=== PATIENT | female | born 1985 | race Caucasian/White ===

== ENCOUNTER 2017-01-11 17:49 | Emergency (ER) | payer OTHER ==
--- NOTE | 2017-01-11 20:07 | ED ---
Allergic Reaction/Systemic - HPI Summary HPI Summary: 31 female presents to ED from [facility] with complaints of allergic reaction consisting of urticaria and some tightness in chest. Given benadryl and prednisone at urgent care. States symptoms have since improved and she is asymptomatic currently. Stated she obtained her weekly allergy shot and appeared that she had an allergic reaction to it. Denies any new medications, foods, lotions, soaps and perfumes. No other complaints. No PMHx. States she had reaction around 4pm, about 15 minutes after allergy shot. Has been having allergy shots weekly since August without previous reaction. - History of Current Complaint Chief Complaint: EDAllergicReaction Time Seen by Provider: 01/11/17 18:40 Hx Obtained From: Patient Onset/Duration: Sudden Onset, Resolved Timing: Lasting Hours - 1 Severity Initially: Mild Severity Currently: None Pain Intensity: 0 Pain Scale Used: 0-10 Numeric Location: Diffuse - urticaria over chest, abdomen, neck Character: Pruritus, Hives Aggravating Factor(s): Nothing - allergy shot, cause? Alleviating Factor(s): Antihistamines - benadryl and prednisone Associated Signs And Symptoms: Positive: Other: - chest tightness. Negative: Throat Tightening - Related Hx Possible Reaction To: Other: - allergy shot PMH/Surg Hx/FS Hx/Imm Hx Endocrine/Hematology History: Denies: Hx Diabetes Cardiovascular History: Denies: Hx Hypertension - Immunization History Date of Influenza Vaccine: 10/2016 Immunizations Up to Date: Yes Infectious Disease History: No Infectious Disease History: Denies: Traveled Outside the [place] in Last 30 Days - Family History Known Family History: Positive: None - Social History Alcohol Use: None Substance Use Type: Reports: None Smoking Status (MU): Never Smoked Tobacco Review of Systems Constitutional: Negative Positive: Other - chest tightness Respiratory: Negative Positive: Rash - urticaria All Other Systems Reviewed And Are Negative: Yes Physical Exam Triage Information Reviewed: Yes Vital Signs On Initial Exam: Initial Vitals Temp Pulse Resp BP Pulse Ox 99.1 F 84 18 132/86 100 01/11/17 18:03 01/11/17 18:03 01/11/17 18:03 01/11/17 18:03 01/11/17 18:03 Vital Signs Reviewed: Yes Appearance: Positive: Well-Appearing, No Pain Distress, Well-Nourished Skin: Positive: Warm, Skin Color Reflects Adequate Perfusion, Dry, Other - no rash upon exam, urticaria resolved. Negative: Cold, Numb, Cyanosis @, Pale, Erythema @ Head/Face: Positive: Normal Head/Face Inspection Eyes: Positive: Conjunctiva Clear ENT: Positive: Hearing grossly normal, Pharynx normal Neck: Positive: Supple Respiratory/Lung Sounds: Positive: Clear to Auscultation, Breath Sounds Present. Negative: Rales, Rhonchi, Wheezes Cardiovascular: Positive: Normal, RRR, Pulses are Symmetrical in both Upper and Lower Extremities. Negative: Murmur, Rub Bowel Sounds: Positive: Present Musculoskeletal: Positive: Normal, Strength/ROM Intact Neurological: Positive: Normal, Sensory/Motor Intact, Alert, Oriented to Person Place, Time - [place] Coma Scale Coma Scale Total: 15 Diagnostics - Vital Signs Vital Signs Temp Pulse Resp BP Pulse Ox 01/11/17 19:24 72 16 109/56 99 01/11/17 18:03 99.1 F 84 18 132/86 100 - Laboratory Lab Statement: Any lab studies that have been ordered have been reviewed, and results considered in the medical decision making process. Allergic Reaction Course/Dx - Course Course Of Treatment: patient was given benadryl and prednisone while at . reaction occurred around 4pm. patient was observed in ED for 2 hours without any symptoms and complete improvement. asymptomatic. will continue prednisone and benadryl. appears to have been allergy shot. follow up with special needs tutor, possibly refrain from shots. aware of worsening signs and symptoms to return for. agrees and understands. follow up pcp. - Diagnoses Differential Diagnosis/HQI/PQRI: Positive: Anaphylaxis, Local Allergic Reaction , Urticaria Provider Diagnoses: Allergic reaction, Urticaria Discharge - Discharge Plan Condition: Stable Disposition: HOME Prescriptions: Methylprednisolone [Medrol Dosepak 4 MG*] 4 mg PO .SEE GRIS INSTRUCTION #21 tab Patient Education Materials: Urticaria (ED), General Allergic Reaction (ED) Referrals: [facility] [Primary Care Provider] - Additional Instructions: Take prescribed medication. Recommend taking in morning. Take benadryl at bedtime, one more tonight before bed as well. You may take more benadryl throughout day, as needed, as directed. Drink plenty of fluids, Any new or worsening symptoms please seek medical attention promptly. Follow up with PCP and special needs tutor.
[2017-01-11 20:14] VITALS: BP 116/67
== END 2017-01-11 20:14 | disposition home or self-care (01) ==
LOC: ED 17:49
DX: T78.40XA Allergy, unspecified, initial encounter (principal); X58.XXXA Exposure to other specified factors, initial encounter; L50.0 Allergic urticaria; R07.9 Chest pain, unspecified
CPT/HCPCS: 99282

== ENCOUNTER 2018-03-12 03:35 | Emergency (ER) | payer OTHER ==
[2018-03-12] MEDS ORDERED: Pantoprazole IV* 40 MG IV ONE (04:35)
[2018-03-12] MEDS ORDERED: Metoclopramide IV* 5 MG/ML 2 ML VIAL IV SLOW PU ONE (04:35)
[2018-03-12] MEDS ORDERED: NS 0.9% 1000 ML* 1,000 ML IV ONE (04:35)
[2018-03-12 04:51] LABS: Hematocrit 41 % (35-47); Hemoglobin 13.9 g/dl (12.0-16.0); Mean Corpuscular HGB Conc 34 g/dl (31-36); Mean Corpuscular Hemoglobin 30 pg (27-31); Mean Corpuscular Volume 89 fL (80-97); Mean Platelet Volume 7.6 fL (7.4-10.4); Platelet Count 201 10^3/ul (150-450); Red Blood Count 4.64 10^6/ul (4.00-5.40); Red Cell Distribution Width 14 % (10.5-15); White Blood Count 7.5 10^3/ul (3.5-10.8)
[2018-03-12] MEDS ORDERED: Metoclopramide IV* 5 MG/ML 2 ML VIAL ONE (04:53)
[2018-03-12 05:08] LABS: ALT 10 U/L (7-52); AST 13 U/L (13-39); Albumin 3.7 g/dL (3.2-5.2); Albumin/Globulin Ratio 1.2 (1-3); Alkaline Phosphatase 41 U/L (34-104); Amylase 69 U/L (29-103); Anion Gap 6 mmol/L (2-11); BUN/Creatinine Ratio 26.8 (8-20); Blood Urea Nitrogen 15 mg/dL (6-24); C Reactive Protein 1.47 mg/L (<8.01); CO2 Carbon Dioxide 25 mmol/L (22-32); Calcium 8.8 mg/dL (8.6-10.3); Chloride 106 mmol/L (101-111); EGFR Non-African American 124.7 (>60); Globulin 3.2 g/dL (2-4); Glucose 106 mg/dL (70-100); Magnesium 1.9 mg/dL (1.9-2.7); Potassium 3.4 mmol/L (3.5-5.0); Sodium 137 mmol/L (135-145); Total Protein 6.9 g/dL (6.4-8.9)
[2018-03-12] MEDS ORDERED: Potassium Chlor TAB* 20 MEQ TAB.ER PO ONE (05:10)
[2018-03-12 05:15] LABS: HCG Pregnancy < 0.60 mIU/mL
[2018-03-12 05:19] LABS: ABS Basophils 0 10^3/ul (0-0.2); ABS Eosinophils 0.1 10^3/ul (0-0.6); ABS Lymphocytes 0.3 10^3/ul (1.0-4.8); ABS Monocytes 0.6 10^3/ul (0-0.8); ABS Neutrophils 6.5 10^3/ul (1.5-7.7); ABS Nucleated RBC 0 10^3/ul; Eosinophil % 0.9 %; Lymphocyte % 3.7 %; Nucleated Red Blood Cells % 0
[2018-03-12 05:23] LABS: Urine Appearance Cloudy; Urine Bacteria 1+ (Absent); Urine Bilirubin Negative (Negative); Urine Blood 1+ (Negative); Urine Color Amber; Urine Glucose Negative (Negative); Urine Ketones 2+ (Negative); Urine Nitrite Negative (Negative); Urine Protein 1+(30 mg/dL) (Negative); Urine Red Blood Cell 2+(6-10/hpf) (Absent); Urine Specific Gravity 1.025 (1.010-1.030); Urine Urobilinogen Negative (Negative); Urine White Blood Cell 2+(11-20/hpf) (Absent)
[2018-03-12 06:10] VITALS: BP 112/79
--- NOTE | 2018-03-12 12:47 | ED ---
Abdominal Pain/Female - HPI Summary HPI Summary: A 32 y/o female presents to the ED c/o vomiting. Additionally c/o epigastric abdominal pain. In the ED course, the patient has a pulse of 93 BPM, O2 saturation of 97%, and blood pressure of 110/75. As per triage, "pt states that she has vomitied multipal times in the last few hours and the last time she vomited there was some blood in the vomite". According to the patient, she has been vomiting since 1230 to 0100 this morning. She denies any diarrhea, but noted that her vomiting came first before epigastic pain which started upon arrival to [facility]. SHe denies any history of abdominal pains. Patient has a PMHx of cancer and thyroid issues. Patient denies any ETOH. - History of Current Complaint Chief Complaint: EDNauseaVomitDiarrh Stated Complaint: VOMITTING Time Seen by Provider: 03/12/18 03:41 Hx Obtained From: Patient Onset/Duration: Sudden Onset, Still Present Severity Currently: None Pain Intensity: 0 Pain Scale Used: 0-10 Numeric Location: Epigastric Radiates: No Aggravating Factor(s): Nothing Alleviating Factor(s): Nothing Associated Signs and Symptoms: Positive: Vomiting. Negative: Diarrhea Allergies/Adverse Reactions: Allergies Allergy/AdvReac Type Severity Reaction Status Date / Time No Known Allergies Allergy Verified 03/12/18 04:11 Home Medications: Home Medications Levothyroxine TAB* [Synthroid TAB*] 125 mcg PO DAILY 03/12/18 [History Confirmed 03/12/18] Norgestrel-Ethinyl Estradiol [Cryselle-28 Tablet] 1 tab PO DAILY 03/12/18 [ History Confirmed 03/12/18] PMH/Surg Hx/FS Hx/Imm Hx Endocrine/Hematology History: Denies: Hx Diabetes Cardiovascular History: Denies: Hx Hypertension - Surgical History Surgery Procedure, Year, and Place: none - Immunization History Date of Influenza Vaccine: 10/2016 Immunizations Up to Date: Yes Infectious Disease History: No Infectious Disease History: Denies: Traveled Outside the [place] in Last 30 Days - Family History Known Family History: Negative: Renal Disease - Social History Alcohol Use: None Substance Use Type: Reports: None Smoking Status (MU): Never Smoked Tobacco Review of Systems Negative: Fever Positive: Abdominal Pain, Vomiting. Negative: Diarrhea All Other Systems Reviewed And Are Negative: Yes Physical Exam - Summary Physical Exam Summary: VITAL SIGNS: Reviewed. GENERAL: Patient is a well-developed and nourished male who is lying comfortable in the stretcher. Patient is not in any acute respiratory distress. HEAD AND FACE: No signs of trauma. No ecchymosis, hematomas or skull depressions. No sinus tenderness. EYES: PERRLA, EOMI x 2, No injected conjunctiva, no nystagmus. EARS: Hearing grossly intact. Ear canals and tympanic membranes are within normal limits. MOUTH: Oropharynx within normal limits. NECK: Supple, trachea is midline, no adenopathy, no JVD, no carotid bruit, no c- spine tenderness, neck with full ROM. CHEST: Symmetric, no tenderness at palpation LUNGS: Clear to auscultation bilaterally. No wheezing or crackles. CVS: Regular rate and rhythm, S1 and S2 present, no murmurs or gallops appreciated. ABDOMEN: Soft, epigastric tenderness. No signs of distention. No rebound no guarding, and no masses palpated. Bowel sounds are normal. EXTREMITIES: FROM in all major joints, no edema, no cyanosis or clubbing. NEURO: Alert and oriented x 3. No acute neurological deficits. Speech is normal and follows commands. SKIN: Dry and warm Triage Information Reviewed: Yes Vital Signs On Initial Exam: Initial Vitals Temp Pulse Resp BP Pulse Ox 98.0 F 89 20 128/76 99 03/12/18 03:40 03/12/18 03:40 03/12/18 03:40 03/12/18 03:40 03/12/18 03:40 Vital Signs Reviewed: Yes Diagnostics - Vital Signs Vital Signs Temp Pulse Resp BP Pulse Ox 03/12/18 03:40 98.0 F 89 20 128/76 99 - Laboratory Result Diagrams: 03/12/18 04:42 03/12/18 04:42 Lab Statement: Any lab studies that have been ordered have been reviewed, and results considered in the medical decision making process. Abdominal Pain Fem Course/Dx - Course Course Of Treatment: A 32 y/o female presents to the ED c/o vomiting. Additionally c/o epigastric abdominal pain. Physical examination findings significant for epigastric tenderness. No laboratory scans were done. No significant laboratory abnormalities were found. In the ED course, the patient received no medications. Patient will be discharged with a diagnosis of vomiting. Patient is to follow up with primary care provider in 1-2 days. Patient is to return to ED for any new or worsening symptoms. Patient is agreeable with this plan. - Diagnoses Provider Diagnoses: Vomiting Discharge - Sign-Out/Discharge Documenting (check all that apply): Patient Departure - DISCHARGE - Discharge Plan Condition: Stable Disposition: HOME Prescriptions: Metoclopramide TAB* [Reglan TAB*] 10 mg PO Q6H PRN #20 tab PRN Reason: Nausea/Vomiting Patient Education Materials: Acute Nausea and Vomiting (ED) [facility]errals: [facility] [Primary Care Provider] - 2 Days Additional Instructions: FOLLOW UP WITH PRIMARY CARE PROVIDER IN 1-2 DAYS. RETURN TO ED FOR ANY NEW OR WORSENING SYMPTOMS. - Attestation Statements Document Initiated by Mac: Yes Documenting Scribe: Gustabo Pierre Provider For Whom Mac is Documenting (Include Credential): Darleen Tsai MD Scribe Attestation: Gustabo Acevedo scribed for Darleen Tsai MD on 03/12/18 at 0527. Status of Scribe Document: Ready
== END 2018-03-12 06:00 | disposition home or self-care (01) ==
LOC: ED 03:35
DX: R11.10 Vomiting, unspecified (principal); R10.13 Epigastric pain; E07.9 Disorder of thyroid, unspecified; Z85.9 Personal history of malignant neoplasm, unspecified
CPT/HCPCS: 36415; 80053; 81003; 81015; 82150; 83690; 83735; 84702; 85025; 86140; 87086; 99283; J2765